=== PATIENT | male | born 1950 | race Caucasian/White ===

== ENCOUNTER → 2016-12-05 | Outpatient (CLI) | payer OTHER | LOC: MMPC 11:11 | DX: I25.10 Atherosclerotic heart disease of native coronary artery without angina pectoris (principal); I65.29 Occlusion and stenosis of unspecified carotid artery; E78.5 Hyperlipidemia, unspecified; H90.5 Unspecified sensorineural hearing loss; E55.9 Vitamin D deficiency, unspecified | CPT/HCPCS: 99213; G0463 ==

== ENCOUNTER → 2017-02-21 | Outpatient (CLI) | payer OTHER ==
--- NOTE | 2017-02-21 15:27 | DI ---
XR C-SPINE COMPLETE MIN 4VW,02/21/2017 10:28 AM: Clinical History: Neck pain Previous Exam: Neck pain Findings: AP, lateral, flexion and extension views of the cervical spine are obtained, and demonstrate anatomic alignment without fractures. There is loss of intervertebral disc height at C4/5, C5/6 and C6/7 with endplate osteophyte formation . The prevertebral soft tissues are unremarkable. Flexion and extension views demonstrate no evidence of atlantoaxial instability nor spondylolisthesis . The lung apices are clear. Impression: Diffuse degenerative changes of the cervical spine without fractures nor instability.
== END ==
LOC: ORTHO 10:53
PROVIDERS: ATTEND Physician Assistant
DX: M54.2 Cervicalgia (principal); M47.22 Other spondylosis with radiculopathy, cervical region
CPT/HCPCS: 72050

== ENCOUNTER → 2017-02-23 | Outpatient (CLI) | payer OTHER ==
--- NOTE | 2017-02-23 10:50 | DI ---
MRI CERVICAL SPINE W/O CN,02/23/2017 7:46 AM: Clinical History: Cervical spondylosis with radiculopathy. Previous Exam: None at this facility. Findings: Multiplanar MR images are obtained through the cervical spine without contrast. Vertebral body height is preserved. There is loss of intervertebral disc height throughout the cervic al spine. There is some facet hypertrophy is noted throughout. The prevertebral soft tissues are unre markable. The posterior fossa is unremarkable. The major vascular flow voids are unremarkable. Signal within the musculature is unremarkable. Individual intervertebral disc spaces: C2/C3: There is a broad-based disc bulge and a very small 2 mm central disc protrusion as well as brigido e significant uncovertebral joint osteophyte formation contributing to moderate left neural foraminal narrowing. C3/4: There is disc desiccation and a broad-based disc bulge with a small central disc protrusion reno suring 3 mm. Uncovertebral joint osteophytes are noted causing moderate bilateral neural foraminal narrowing. Ther e is also some facet hypertrophy contributing to this. There is moderate central canal stenosis. C4/5: There is disc desiccation and a broad-based disc bulge and a central disc extrusion measuring 6 mm causing severe central canal stenosis. There is uncovertebral joint osteophyte formation and face t hypertrophy contributing to moderate to severe bilateral neural foraminal narrowing. C5/6: There is disc desiccation and a broad-based disc bulge with some annular fissuring and a centra l disc extrusion contributing to severe central canal stenosis with cord edema. There is also uncover tebral joint osteophytes and facet hypertrophy contributing to moderate to severe neuroforaminal narr owing. C6/7: There is disc desiccation and, annular fissuring and near complete loss of intervertebral disc height with a broad-based disc bulge and a left lateral recess disc extrusion measuring 5 mm. This co ntributes to severe central canal stenosis with severe left lateral recess stenosis and severe right neural foraminal narrowing. C7/T1: There is disc desiccation and a broad-based central disc bulge with some annular fissuring as well as uncovertebral joint and facet osteophyte formation contributing to moderate central canal nura nosis with severe bilateral neural foraminal narrowing. Impression: Multilevel degenerative changes of the cervical spine which are worst where there is severe central c anal stenosis from C5-C7 with cord edema suggesting some underlying myelomalacia. Recommend neurosurgical consultation.
== END ==
LOC: MRI 07:42
PROVIDERS: ATTEND Physician Assistant
DX: M47.22 Other spondylosis with radiculopathy, cervical region (principal); M50.11 Cervical disc disorder with radiculopathy, high cervical region; M50.121 Cervical disc disorder at C4-C5 level with radiculopathy
CPT/HCPCS: 72141

== ENCOUNTER → 2017-03-09 | Outpatient (CLI) | payer OTHER | LOC: MMPC 10:00 | PROVIDERS: ATTEND Neurological Surgery | DX: M47.22 Other spondylosis with radiculopathy, cervical region (principal); M48.02 Spinal stenosis, cervical region; G95.89 Other specified diseases of spinal cord; M50.03 Cervical disc disorder with myelopathy, cervicothoracic region; M25.78 Osteophyte, vertebrae | CPT/HCPCS: 99213; G0463 ==

== ENCOUNTER → 2017-03-13 | Outpatient (CLI) | payer OTHER ==
--- NOTE | 2017-03-13 12:01 | DI ---
History: Osteoarthritis of the cervical spine. Comparison: None Findings: No prevertebral soft tissue swelling. Osteophyte formation at the level of C4 through C7. Intervertebral disc space narrowing C4-5, C5-6, and C6-7. No compression fracture No spondylolisthesis Dens intact Lateral masses align Cervical spine. Throughout the cervical spine. Impression: Degenerative changes including intervertebral disc space narrowing, endplate osteophyte formation, an d degenerative changes in facet and uncovertebral joints, resulting in mild to moderate degrees of ne ural foraminal narrowing throughout the cervical spine.
== END ==
LOC: CT 06:45
PROVIDERS: ATTEND Physician Assistant
DX: M47.22 Other spondylosis with radiculopathy, cervical region (principal)
CPT/HCPCS: 72125

== ENCOUNTER 2017-03-22 07:16 | Day surgery (SDC) | payer OTHER ==
[2017-03-22 07:41] VITALS: RESP 16; TEMP 96.9
--- NOTE | 2017-03-22 08:03 | GEN.OPNOTE ---
Interlaminar WINIFRED Procedure: Interlaminar Epidural Steriod Injection Procedure Code - Neurosurgery: 15255 : Cervical Epidural Injection (Single) Level: Cervical Preoperative Diagnosis: Cervical Stenosis Postoperative Diagnosis: same -: Consent: Rationale for procedure, nature of procedure, possible risks and benefits were discussed with the patient. Risks including allergic reaction to medications, known effects of steroid medications including transient elevation in blood sugar with aggravation of pre-existing diabetes and remote risk of aseptic necrosis of the hip. Pain at the injection site, inadvertent dural puncture with resultant in CSF leak and headache possibly requiring further treatment. Infection or bleeding with potential risk of neurologic injury with weakness, paralysis or were all reviewed with the patient who wished to proceed. Anesthesia, sedation: No intravenous access or sedation was used. Physiologic monitoring of pulse and oxygen saturation was utilized. Procedure: The patient was placed prone on the operating room table, prepped with Chloroprep and sterilely draped. The skin was anesthetized with 1% Buffered Xylocaine. Under fluoroscopic control a 22-gauge Touhy needle was advanced into the epidural space at the C7T1 level. Using loss-of- resistance technique the epidural space was identified. Omnipaque was injected under real- time fluoroscopy demonstrating an epidurogram. Following this 5 ml of a mixture of triamcinolone (40mg/ml) , dexamethasone 10 mg and 1% lidocaine was injected epidurally. AP and lateral images of the final needle placement were obtained. The needle was removed and the patient returned to the post procedure recovery room where they were monitored for any side effects. Pain assessment: Preprocedure pain []/10, post procedure pain []/10. Discharge instructions: Patient was given a pain log to be filled out and returned. A delayed response to the steroids of 2-5 days was discussed.
[2017-03-22] MEDS ORDERED: DEXAMETHASONE PF 10 MG/1 ML VIAL IM ONE (09:00)
[2017-03-22] MEDS ORDERED: TRIAMCINOLONE ACETONIDE 40 MG/1 ML IAC ONE (09:00)
== END 2017-03-22 08:08 | disposition home or self-care (01) ==
LOC: SDSC 07:16
PROVIDERS: ATTEND Pain Medicine Interventional Pain Medicine
DX: M48.02 Spinal stenosis, cervical region (principal); G95.89 Other specified diseases of spinal cord
CPT/HCPCS: 62321; 76000; J1100; J3301